=== PATIENT | female | born 1995 | race Caucasian/White ===

== ENCOUNTER 2016-06-04 13:16 | Emergency (ER) | payer OTHER | END 2016-06-04 14:45 | disposition home or self-care (01) | LOC: ER 13:16 | DX: J10.1 Influenza due to other identified influenza virus with other respiratory manifestations (principal); F17.210 Nicotine dependence, cigarettes, uncomplicated | CPT/HCPCS: 87070; 87400; 87880; 99283 ==

== ENCOUNTER 2016-08-24 13:16 | Emergency (ER) | payer OTHER ==
[2016-08-24 19:01] LABS: URINE BILIRUBIN NEGATIVE (NEGATIVE); URINE BLOOD NEGATIVE (NEGATIVE); URINE GLUCOSE (UA) NORMAL (NORMAL); URINE KETONE NEGATIVE (NEGATIVE); URINE LEUKOCYTE ESTERASE TRACE (NEGATIVE); URINE NITRATE NEGATIVE (NEGATIVE); URINE PROTEIN NEGATIVE (NEGATIVE)
[2016-08-24 19:24] LABS: URINE WBC 0-5 /[HPF] (0-5)
[2016-08-24 19:25] LABS: URINE SQUAMOUS EPITHELIAL CELL 0-10 /[HPF] (NONE SEEN)
[2016-08-24 20:28] LABS: BASO % 0.3 % (0.1-1.2); EOS # 0.1 10_X3_uL (0.0-0.4); EOS % 0.8 % (0.7-5.8); GRAN # 8.3 10_X3_uL (1.6-6.1); GRAN % 75.6 % (34.0-71.1); HEMATOCRIT 34.7 % (34-45); LYMPH # 1.9 10_X3_uL (1.2-3.7); MEAN CORPUSCULAR HEMOGLOBIN 28.9 pg (27.0-33.0); MEAN CORPUSCULAR HGB CONC 34.6 g/dL (32.0-36.0); MEAN CORPUSCULAR VOLUME 83.6 fL (79-95); MEAN PLATELET VOLUME 9.6 fl (7.5-11.5); MONO # 0.7 10_X3_uL (0.2-0.9); MONO % 6.3 % (4.7-12.5); PLATELET COUNT 273 x10_3/uL (182-369); RED BLOOD COUNT 4.15 x10_6/uL (3.9-5.2); RED CELL DISTRIBUTION WIDTH 12.7 % (11.7-14.4)
[2016-08-24 20:49] LABS: ALKALINE PHOSPHATASE 70 U/L (50-136); ALT/SGPT 11 U/L (3.5-33.9); AMYLASE 51 U/L (15.62-74.58); AST/SGOT 15 U/L (7.04-26.96); BLOOD UREA NITROGEN 7 mg/dL (7-18); CALCIUM 9.3 mg/dL (8.7-10.7); CARBON DIOXIDE 23 mmol/L (21-32); CREATININE 0.5 mg/dL (0.6-1.3); GLUCOSE,RANDOM 87 mg/dL (70-99); LIPASE 26 U/L (6.75-60.75); POTASSIUM 4.1 mmol/L (3.5-5.1); SODIUM 136 mmol/L (136-145); TOTAL PROTEIN 7.3 gm/dL (6.4-8.2)
== END 2016-08-24 21:10 | disposition home or self-care (01) ==
LOC: ER 13:16
PROVIDERS: Emergency Medicine
DX: M54.5 Low back pain (principal); R11.0 Nausea; Z33.1 Pregnant state, incidental; Z82.49 Family history of ischemic heart disease and other diseases of the circulatory system
CPT/HCPCS: 36415; 80053; 81001; 81025; 82150; 83690; 85025; 99070; 99283